=== PATIENT | female | born 1950 | race Caucasian/White ===

== ENCOUNTER 2021-03-14 08:00 | Outpatient (CLI) | payer MEDICARE, BC ==
--- NOTE | 2021-03-14 11:04 | XRAY Report ---
PROCEDURE: Shoulder 3 View RT INDICATIONS: STRAIN OF RIGHT SHOULDER TECHNIQUE: 3 views of the shoulder were acquired. COMPARISON: None. FINDINGS: Bones: No fractures or dislocations. No suspicious bony lesions. Visualized ribs appear intact. Soft tissues: There are prominent amorphous calcifications over the lateral aspect of the right humer al head, consistent with a combination of calcific tendinitis and bursitis. IMPRESSION: No acute trauma found. A combination of calcific tendinitis and bursitis appears present . Reviewed by: Diogenes Melgar MD on 03/14/2021 11:03 AM PDT Approved by: Diogenes Melgar MD on 03/14/2021 11:03 AM PDT Station ID: [id number]
== END 2021-03-14 23:59 | disposition home or self-care (01) ==
LOC: DI.S 08:00
PROVIDERS: ATTEND Nurse Practitioner
DX: S46.911A Strain of unspecified muscle, fascia and tendon at shoulder and upper arm level, right arm, initial encounter (principal)

== ENCOUNTER 2021-07-03 15:53 | Outpatient (CLI) | payer MEDICARE, BC | END 2021-07-03 15:54 | disposition home or self-care (01) | LOC: COV 15:53 | PROVIDERS: ATTEND Family Medicine | DX: Z20.822 Contact with and (suspected) exposure to COVID-19 (principal) ==